=== PATIENT | female | born 1980 | race Caucasian/White ===

== ENCOUNTER 2017-04-07 15:27 | Emergency (ER) | payer BC ==
[~2017-04-07] VITALS: Ht 154.9 cm; Wt 61.2 kg
[2017-04-07 15:33] VITALS: BP_SYST 131
[2017-04-07 21:13] VITALS: BP_SYST 124
== END 2017-04-07 21:13 | disposition home or self-care (01) ==
LOC: SED 15:27
DX: T52.0X1A Toxic effect of petroleum products, accidental (unintentional), initial encounter (principal); L53.0 Toxic erythema; Y92.89 Other specified places as the place of occurrence of the external cause
CPT/HCPCS: 99283